=== PATIENT | female | born 1980 | race American Indian/Alaskan Native ===

== ENCOUNTER 2020-05-10 16:21 | Emergency (ER) | payer SELFPAY ==
[2020-05-10 16:27] VITALS: BP 118/76
--- NOTE | 2020-05-10 16:47 | XRay Report ---
RIGHT FOOT 3 VIEWS INDICATION: Somebody stepped on the patient's foot. COMPARISON: No relevant prior imaging study available. FINDINGS: No acute fracture or dislocation. No soft tissue gas or foreign bodies. No degenerative changes. IMPRESSION: 1. No acute findings. Signer Name: Adalberto Prakash MD Signed: 05/10/2020 4:42 PM Workstation Name: [id number]
--- NOTE | 2020-05-10 18:05 | Emergency Department Report ---
ED Lower Extremity HPI - General Chief Complaint: Extremity Injury, Lower Stated Complaint: RT FOOT INJURY Time Seen by Provider: 05/10/20 17:58 Source: patient Mode of arrival: Ambulatory Limitations: No Limitations - History of Present Illness Initial Comments: Patient 39-year-old female. Presents for right lower extremity foot pain status post heel versus foot. Pain swelling erythema 4/10 of the right small toe. Small abrasion. There is no drainage, no numbness no tingling no obvious deformity. No drainage noted at this time. Patient is partial weightbearing. Incident happened 3 days ago.there has been no fevers no chills no nausea vomiting. Symptoms are exacerbated by weightbearing. Symptoms are relieved by offloading and rest. MD Complaint: foot injury Injury: Foot: Right (right small toe pain and swelling ) Type of Injury: blunt Place: street/outdoors Severity: moderate Severity scale (0 -10): 4 Improves With: nothing Worsens With: weight bearing Context: direct blow Associated Symptoms: swelling, able to partially bear weight. denies: snap/pop sensation, numbness, tingling - Related Data Previous Rx's Medication Instructions Recorded Last Taken Type Azithromycin [Zithromax] 250 mg PO QDAY #4 tablet 02/19/14 Unknown Rx Promethazine /Codeine 5 ml PO Q6H PRN #120 ml 02/19/14 Unknown Rx [Phenergan/Codeine 6.25-10 mg/5 ml] Ondansetron [Zofran] 4 mg PO Q6HR PRN #20 tablet 05/25/14 Unknown Rx Sulfamethoxazole/Trimethoprim 1 each PO BID #20 tablet 05/25/14 Unknown Rx [Bactrim Ds] metroNIDAZOLE [Flagyl] 500 mg PO BID #20 tablet 05/25/14 Unknown Rx HYDROcodone/APAP 5-325 [[place] 1 each PO Q6HR PRN #10 tablet 09/08/15 Unknown Rx 5/325] cephALEXin [Keflex] 500 mg PO Q8HR 7 Days #21 cap 05/10/20 Unknown Rx traMADoL [Ultram] 50 mg PO Q6HR PRN #12 tablet 05/10/20 Unknown Rx Allergies Allergy/AdvReac Type Severity Reaction Status Date / Time pineapple Allergy Unknown Verified 05/10/20 16:28 shellfish derived Allergy Swelling Verified 09/08/15 15:52 ED Review of Systems ROS: Stated complaint: RT FOOT INJURY Other details as noted in HPI Constitutional: denies: chills, fever Eyes: denies: eye pain, eye discharge, vision change ENT: denies: ear pain, throat pain Respiratory: denies: cough, shortness of breath, wheezing Cardiovascular: denies: chest pain, palpitations Endocrine: no symptoms reported Gastrointestinal: denies: abdominal pain, nausea, diarrhea Genitourinary: denies: urgency, dysuria, discharge Musculoskeletal: other (right foot pain and swelling ). denies: back pain, joint swelling, arthralgia Skin: denies: rash, lesions Neurological: denies: headache, weakness, paresthesias Psychiatric: denies: anxiety, depression Hematological/Lymphatic: denies: easy bleeding, easy bruising ED Past Medical Hx - Past Medical History Hx Asthma: Yes - Social History Smoking Status: Current Every Day Smoker Substance Use Type: None - Medications Home Medications: Home Medications Medication Instructions Recorded Confirmed Last Taken Type Azithromycin [Zithromax] 250 mg PO QDAY #4 tablet 02/19/14 Unknown Rx Promethazine /Codeine 5 ml PO Q6H PRN #120 ml 02/19/14 Unknown Rx [Phenergan/Codeine 6.25-10 mg/5 ml] Ondansetron [Zofran] 4 mg PO Q6HR PRN #20 tablet 05/25/14 Unknown Rx Sulfamethoxazole/Trimethoprim 1 each PO BID #20 tablet 05/25/14 Unknown Rx [Bactrim Ds] metroNIDAZOLE [Flagyl] 500 mg PO BID #20 tablet 05/25/14 Unknown Rx HYDROcodone/APAP 5-325 [[place] 1 each PO Q6HR PRN #10 tablet 09/08/15 Unknown Rx 5/325] cephALEXin [Keflex] 500 mg PO Q8HR 7 Days #21 cap 05/10/20 Unknown Rx traMADoL [Ultram] 50 mg PO Q6HR PRN #12 tablet 05/10/20 Unknown Rx ED Physical Exam - General Limitations: No Limitations General appearance: alert, in no apparent distress - Head Head exam: Present: atraumatic, normocephalic - Eye Eye exam: Present: normal appearance, EOMI Pupils: Present: normal accommodation - ENT ENT exam: Present: mucous membranes moist - Neck Neck exam: Present: normal inspection - Respiratory Respiratory exam: Present: normal lung sounds bilaterally. Absent: respiratory distress, wheezes - Cardiovascular Cardiovascular Exam: Present: regular rate, normal rhythm. Absent: systolic murmur, diastolic murmur, rubs, gallop - GI/Abdominal GI/Abdominal exam: Present: soft, normal bowel sounds - Rectal Rectal exam: Present: deferred - Extremities Exam Extremities exam: Present: full ROM, tenderness (right small toe ), normal capillary refill. Absent: pedal edema - Expanded Lower Extremity Exam Right Foot/Toe exam: Present: tenderness, swelling, erythema. Absent: deformity, crepidus, dislocation, tenderness at base of 5th metatarsal, nail avulsion, subungual hematoma Neuro vascular tendon exam: Absent: pulse deficit, motor deficit, sensory deficit Gait: Positive: observed and limited by pain - Back Exam Back exam: Present: normal inspection, full ROM. Absent: vertebral tenderness - Neurological Exam Neurological exam: Present: alert, oriented X3, CN II-XII intact, reflexes normal. Absent: motor sensory deficit - Expanded Neurological Exam Expanded Patient oriented to: Present: person, place, time Speech: Present: fluid speech Motor strength exam: RLE: 5, LLE: 5 DTR: ankle (R): 2+, ankle (L): 2+ Best Eye Response (Gabriella): (4) open spontaneously Best Motor Response (Soquel): (6) obeys commands Best Verbal Response (Soquel): (5) oriented Soquel Total: 15 - Psychiatric Psychiatric exam: Present: normal affect, normal mood - Skin Skin exam: Present: warm, dry, erythema (right 5th toe foot mild erythema no drainage distal pulses +2, no fever , no deformity. ) ED Course Vital Signs 05/10/20 16:25 Temperature 99.3 F Pulse Rate 94 H Blood Pressure 118/76 O2 Sat by Pulse 100 Oximetry ED Lower Extremity MDM - Radiology Data Radiology results: report reviewed, image reviewed Report Status: Finalized [facility] [address] [place] [address] XRay Report Signed Patient: HA RIVERA MR#: [id number] : 1980 Acct:[id number] Age/Sex: 39 / F ADM Date: 05/10/20 Loc: ED Attending Dr: Ordering Physician: ED MD HILDA Date of Service: 05/10/20 Procedure(s): XR foot 3+V RT Accession Number(s): [id number] cc: ED DOC, Fluoro Time In Minutes: RIGHT FOOT 3 VIEWS INDICATION: Somebody stepped on the patient's foot. COMPARISON: No relevant prior imaging study available. FINDINGS: No acute fracture or dislocation. No soft tissue gas or foreign bodies. No degenerative changes. IMPRESSION: 1. No acute findings. Signer Name: Adalberto Prakash MD Signed: 05/10/2020 4:42 PM Workstation Name: [email or web address] Transcribed By: FRANKO Dictated By: Adalberto Prakash MD Electronically Authenticated By: Adalberto Prakash MD Signed Date/Time: 05/10/201641 DD/ 40 TD/TT: - Medical Decision Making xray No acute fracture or dislocation. No soft tissue gas or foreign bodies. No degenerative changes. There is mild right foot cellulitis plan DC to home with prescriptions, soap and water every day, warm water soaks, follow-up PCP in 2 to 3 days for wound check. Return to ED should symptoms worsen. patient denies have diabetes. Patient is partial weightbearing. However does not need crutches.. Distal pulses intact. PREP COOK less than 3 seconds bilateral. Critical care attestation.: If time is entered above; I have spent that time in minutes in the direct care of this critically ill patient, excluding procedure time. ED Disposition Clinical Impression: Cellulitis of foot Right foot sprain Qualifiers: Encounter type: initial encounter Qualified Code(s): S93.601A - Unspecified sprain of right foot, initial encounter Disposition: DC-01 TO HOME OR SELFCARE Is pt being admited?: No Does the pt Need Aspirin: No Condition: Stable Instructions: Cellulitis, Adult, Foot Sprain Prescriptions: cephALEXin [Keflex] 500 mg PO Q8HR 7 Days #21 cap traMADoL [Ultram] 50 mg PO Q6HR PRN #12 tablet PRN Reason: Pain Referrals: BERTIN HOUSTON MD [Staff Physician] - 3-5 Days Time of Disposition: 18:11
== END 2020-05-10 18:15 | disposition home or self-care (01) ==
LOC: ED 16:21
DX: S93.601A Unspecified sprain of right foot, initial encounter (principal); L03.115 Cellulitis of right lower limb; F17.200 Nicotine dependence, unspecified, uncomplicated; Z79.899 Other long term (current) drug therapy; X58.XXXA Exposure to other specified factors, initial encounter; Y93.89 Activity, other specified; Y92.89 Other specified places as the place of occurrence of the external cause; Y99.8 Other external cause status
CPT/HCPCS: 99283